=== PATIENT | male | born 1985 | race Caucasian/White ===

== ENCOUNTER 2024-01-22 11:09 | Emergency (ER) | payer BC ==
[~2024-01-22] VITALS: Ht 188 cm; Wt 72.6 kg
[2024-01-22 13:00] VITALS: BP 125/96; TEMP 98; O2SAT 100
== END 2024-01-22 13:02 | disposition home or self-care (01) ==
LOC: ER 12:48
DX: F19.10 Other psychoactive substance abuse, uncomplicated (principal)